=== PATIENT | male | born 1975 | race Caucasian/White ===

== ENCOUNTER 2016-10-06 12:24 | Emergency (ER) | payer OTHER ==
[2016-10-06] MEDS ORDERED: IOPAMIDOL-300 100 ML VIAL IVP ONE (13:42)
== END 2016-10-06 14:38 | disposition home or self-care (01) ==
DX: K57.32 Diverticulitis of large intestine without perforation or abscess without bleeding (principal); I10 Essential (primary) hypertension; F17.200 Nicotine dependence, unspecified, uncomplicated
CPT/HCPCS: 36415; 74177; 80053; 83690; 85025; 99283; 99284; Q9967

== ENCOUNTER 2016-10-08 14:00 | Inpatient (IN) | payer OTHER ==
[2016-10-08] MEDS ORDERED: MORPHINE 2 MG/ML SYRINGE IVP STA (14:39)
[2016-10-08] MEDS ORDERED: MORPHINE 2 MG/ML SYRINGE ONE (14:40)
[2016-10-08] MEDS ORDERED: PIPERACILLIN/TAZOBACTAM 3.375 GM in SODIUM CHLORIDE 0.9% MINIBAG 100 ML IV STA (14:58)
[2016-10-08] MEDS ORDERED: PROCHLORPERAZINE 10 MG/2 ML VIAL IVP PRN (14:59)
[2016-10-08] MEDS ORDERED: ONDANSETRON 4 MG/2 ML VIAL IVP PRN (14:59)
[2016-10-08] MEDS ORDERED: SODIUM CHLORIDE FLUSH 0.9% 10 ML SYRINGE IVP PRN (14:59)
[2016-10-08] MEDS: oxyCODONE 5 MG TABLET PO PRN ×3 (17:08→23:08)
[2016-10-08] MEDS: SODIUM CHLORIDE 0.9% 1,000 ML IV SCH (17:08)
[2016-10-08] MEDS: MORPHINE 2 MG/ML SYRINGE IVP PRN ×2 (18:42→22:28)
[2016-10-08] MEDS ORDERED: BENZOCAINE/MENTHOL LOZENGE MM PRN (22:28)
[2016-10-08] MEDS: SODIUM CHLORIDE FLUSH 0.9% 10 ML SYRINGE IVP SCH (23:09)
[2016-10-09] MEDS: SODIUM CHLORIDE 0.9% 1,000 ML IV SCH ×3 (00:14→21:15)
[2016-10-09] MEDS: ACETAMINOPHEN 325 MG TABLET PO PRN ×2 (05:10→15:40)
[2016-10-09] MEDS: PANTOPRAZOLE 40 MG TABLET PO SCH (06:37)
[2016-10-09] MEDS: SODIUM CHLORIDE FLUSH 0.9% 10 ML SYRINGE IVP SCH ×3 (06:37→21:15)
[2016-10-09] MEDS: oxyCODONE 5 MG TABLET PO PRN (06:37)
[2016-10-09] MEDS: POLYETHYLENE GLYCOL 3350 17 GM PACKET PO SCH (08:46)
[2016-10-09] MEDS ORDERED: PIPERACILLIN/TAZOBACTAM 3.375 GM in SODIUM CHLORIDE 0.9% MINIBAG 100 ML IV SCH (09:30)
[2016-10-09] MEDS: MORPHINE 2 MG/ML SYRINGE IVP PRN ×2 (12:25→15:42)
[2016-10-09] MEDS: PIPERACILLIN/TAZOBACTAM 3.375 GM in SODIUM CHLORIDE 0.9% MINIBAG 100 ML IV SCH ×2 (12:37→21:12)
[2016-10-10] MEDS: ACETAMINOPHEN 325 MG TABLET PO PRN (01:52)
[2016-10-10] MEDS: PIPERACILLIN/TAZOBACTAM 3.375 GM in SODIUM CHLORIDE 0.9% MINIBAG 100 ML IV SCH ×3 (05:11→21:49)
[2016-10-10] MEDS: SODIUM CHLORIDE 0.9% 1,000 ML IV SCH ×2 (05:12→21:49)
[2016-10-10] MEDS: SODIUM CHLORIDE FLUSH 0.9% 10 ML SYRINGE IVP SCH ×3 (07:05→21:49)
[2016-10-10] MEDS: PANTOPRAZOLE 40 MG TABLET PO SCH (07:05)
[2016-10-10] MEDS: POLYETHYLENE GLYCOL 3350 17 GM PACKET PO SCH (08:22)
[2016-10-10] MEDS: SACCHAROMYCES BOULARDII 250 MG CAPSULE PO SCH (17:27)
[2016-10-11] MEDS: SODIUM CHLORIDE 0.9% 1,000 ML IV SCH (04:27)
[2016-10-11] MEDS: PIPERACILLIN/TAZOBACTAM 3.375 GM in SODIUM CHLORIDE 0.9% MINIBAG 100 ML IV SCH (04:59)
[2016-10-11] MEDS: SODIUM CHLORIDE FLUSH 0.9% 10 ML SYRINGE IVP SCH ×2 (06:43→08:01)
[2016-10-11] MEDS: PANTOPRAZOLE 40 MG TABLET PO SCH (06:43)
[2016-10-11] MEDS: SACCHAROMYCES BOULARDII 250 MG CAPSULE PO SCH (07:55)
[2016-10-11] MEDS: POLYETHYLENE GLYCOL 3350 17 GM PACKET PO SCH (07:57)
[2016-10-11] MEDS ORDERED: CEFUROXIME AXETIL 250 MG TABLET PO SCH (21:00)
== END 2016-10-11 10:58 | disposition home or self-care (01) | DRG 392 ==
DX: K57.32 Diverticulitis of large intestine without perforation or abscess without bleeding (principal); F17.210 Nicotine dependence, cigarettes, uncomplicated; K21.9 Gastro-esophageal reflux disease without esophagitis; I10 Essential (primary) hypertension; Z91.013 Allergy to seafood

== ENCOUNTER 2017-02-27 15:54 | Outpatient (CLI) | payer OTHER | END 2017-02-27 15:55 | disposition short-term general hospital (02) | LOC: EMS 15:54 | PROVIDERS: ATTEND Surgery | DX: R06.02 Shortness of breath (principal); R61 Generalized hyperhidrosis | CPT/HCPCS: A0425; A0426 ==

== ENCOUNTER 2017-09-28 10:50 | Emergency (ER) | payer OTHER ==
[2017-09-28] MEDS ORDERED: DEXAMETHASONE 10 MG/ML VIAL PO STA (12:12)
[2017-09-28] MEDS ORDERED: KETOROLAC 60 MG/2 ML VIAL IM STA (12:12)
--- NOTE | 2017-09-28 12:12 | ED Physician Documentation ---
PD HPI BACK PAIN - Stated complaint Stated Complaint: LOWER BACK PX - Chief complaint Chief Complaint: Back Pain - History obtained from History obtained from: Patient - History of Present Illness Timing - onset: Today Timing - duration: Days (1) Timing - details: Gradual onset Pain level max: 8 Pain level now: 8 Location: Lower, Right Quality: Pain, Spasm, Sharp Associated symptoms: No: Fever, Weakness, Numbness, Incontinent of urine, Unable to urinate, Hematuria, Incontinent of stool Improves with: Rest Worsened by: Movement Contributing factors: Lifting (works out at the gym regularly). No: Twisting, Trauma, Anticoagulated, IVDA Similar symptoms before: Has not had sx before Recently seen: Not recently seen - Additional information Additional information: Patient is a 42-year-old gentleman who presents to the emergency department with right-sided back pain that radiates down the right leg for the past week. Has not taken anything for this. No numbness or tingling. No loss of bowel or bladder control. No fevers. Has not taken anything for the pain. States feels like there is a spasm in his back. Has not had any problems similar to this in the past. Does not use any IV drugs. Review of Systems Constitutional: denies: Fever, Chills Ears: denies: Ear pain Nose: denies: Rhinorrhea / runny nose Respiratory: denies: Dyspnea GI: denies: Nausea, Vomiting, Diarrhea Skin: denies: Rash Musculoskeletal: denies: Neck pain Neurologic: denies: Focal weakness, Numbness, Headache PD PAST MEDICAL HISTORY - Past Medical History Past Medical History: Yes Cardiovascular: Hypertension GI: GERD, Diverticulitis - Past Surgical History Past Surgical History: Yes - Present Medications Home Medications: Ambulatory Orders Medication Instructions Recorded Confirmed Pantoprazole [Protonix] 40 mg PO QDAC 30 Days tablet 10/11/16 Cyclobenzaprine [Flexeril] 10 mg PO TID PRN #20 tablet 09/28/17 Fluticasone [Flonase] 09/28/17 Meloxicam [Mobic] 15 mg PO DAILY PRN #20 tablet 09/28/17 - Allergies Allergies/Adverse Reactions: Allergies Allergy/AdvReac Type Severity Reaction Status Date / Time Fish Containing Products Allergy Severe Anaphylaxis Verified 09/28/17 11:04 - Social History Does the pt smoke?: Yes Smoking Status: Current every day smoker Does the pt drink ETOH?: Yes Does the pt have substance abuse?: No - Immunizations Immunizations are current?: Yes PD ED PE NORMAL - Vitals Vital signs reviewed: Yes - General General: Alert and oriented X 3, No acute distress, Well developed/nourished - HEENT HEENT: PERRL, Moist mucous membranes - Neck Neck: Supple, no meningeal sign - Cardiac Cardiac: RRR, Strong equal pulses - Respiratory Respiratory: No respiratory distress, Clear bilaterally - Abdomen Abdomen: Soft, Non tender, Non distended - Back Back: No spinal TTP, Other (Right-sided paraspinal spasm. No midline tenderness to palpation. No step-off or deformity.) - Derm Derm: Warm and dry, No rash - Extremities Extremities: Other (normal bilateral lower extremity patellar and ankle jerk reflexes. Normal great toe extension bilaterally) - Neuro Neuro: Alert and oriented X 3, No motor deficit, No sensory deficit - Psych Psych: Normal mood, Normal affect Results - Vitals Vitals: Vital Signs - 24 hr 09/28/17 11:02 Temperature 36.8 C Heart Rate 80 Respiratory 16 Rate Blood Pressure 157/86 H O2 Saturation 99 Oxygen O2 Source Room air PD MEDICAL DECISION MAKING - ED course Complexity details: re-evaluated patient, considered differential (no cauda equina, no spinal epidural abscess, no fracture, no aortic dissection or evidence of aneursym rupture), d/w patient ED course: Patient is a 42-year-old gentleman who presents to the emergency department with what sounds like right-sided sciatica. No loss of bowel or bladder control. No evidence of cauda equina or epidural abscess. Treated with Toradol and dexamethasone in the emergency department. Will prescribe Mobic and Flexeril for home. No IV drug use. Will continue supportive care and follow-up with his doctor. Patient counseled regarding signs and symptoms for which I believe and urgent re-evaluation would be necessary. Patient with good understanding of and agreement to plan and is comfortable going home at this time This document was made in part using voice recognition software. While efforts are made to proofread this document, sound alike and grammatical errors may occur. Departure - Departure Disposition: 01 Home, Self Care Clinical Impression: Sciatica Qualifiers: Laterality: right Qualified Code(s): M54.31 - Sciatica, right side Condition: Good Instructions: ED Sciatica Follow-Up: Provider,Other [Primary Care Provider] - Within 1 week Prescriptions: Cyclobenzaprine [Flexeril] 10 mg PO TID PRN #20 tablet PRN Reason: Spasms Meloxicam [Mobic] 15 mg PO DAILY PRN #20 tablet PRN Reason: pain Comments: Return if you worsen. This should gradually improve over the next few days. Continue to gently stretch your back at home. Do not drive or operate heavy machinery while taking the Flexeril.
[2017-09-28] MEDS ORDERED: CHERRY SYRUP 10 ML UDC PO ONE (12:26)
[2017-09-28 12:52] VITALS: BP 131/81
== END 2017-09-28 12:51 | disposition home or self-care (01) ==
LOC: ED 10:50
DX: M54.31 Sciatica, right side (principal); I10 Essential (primary) hypertension; K21.9 Gastro-esophageal reflux disease without esophagitis; F17.200 Nicotine dependence, unspecified, uncomplicated
CPT/HCPCS: 96372; 99283; A9270